=== PATIENT | male | born 1950 | race Caucasian/White ===

== ENCOUNTER 2023-02-06 00:40 | Day surgery (SDC) | payer MEDICARE, SELFPAY ==
--- NOTE | 2023-02-03 10:00 | PC.NURSE ---
Report to the Outpatient Waiting Room, entrance under the green pavilion located off [facility], at time __0700 on date _02/06/23 . Planned Procedure Time: _0900 . Time changes happen often and if your time is changed the preop area will call you the afternoon before. - You and your visitor will be asked to self-screen and do not enter if you have any COVID symptoms. - A mask is optional within the hospital at this time. Patients may have clear liquids (water, carbonated beverages, clear teas, apple juice) until 3 hours prior to surgery with a maximum of 20 ounces. - No food from midnight until time of surgery - Infants may have breast milk until 4 hours before surgery, infant formula 6 hours prior to surgery. - Children will be allowed to drink immediately following surgery. If applicable, please bring a bottle or sippy cup to assist with drinking. Juice, water, soda, and popsicles are readily available. For infants on formula, please bring formula the day of surgery. Pacifiers are allowed. Take the following medications with a SIP of water the morning of surgery: _AMLODIPINE,DOXYCYCLINE DO NOT STOP ANY OF YOUR OTHER PRESCRIPTION MEDICATIONS PRIOR TO SURGERY ?EXCEPT THE FOLLOWING Medications to discontinue per physician ___ALL VITAMINS AND SUPPLEMENTS 3 DAYS PRE OP.LAST DOSE 02/03/23. MAY REMAIN ON ELIQUIS PER DR NOLEN.BUT DO NOT TAKE MORNING OF SURGERY Please no make-up, nail israeli, hairspray, perfume, deodorant, or body powder the day of surgery. No jewelry (including any body piercings) or valuables the day of surgery, leave them at home. Please take a shower or bath the night before, or the morning of, surgery with an antibacterial soap. Wear comfortable, loose fitting clothing. Children are encouraged to wear pajamas. - Jewelry must be removed prior to entering the operating room. Rings and piercings that are not removed may be cut off. - The hospital will not accept responsibility for valuables. - Please leave all valuables, including medications, at home the day of surgery. If you are going home after surgery, a licensed reefer truck driver must drive you home. - NO public transportation without another adult if you receive anesthesia. - We recommend that an adult stay with you for 24 hours following discharge. - We also recommend that you do not drive, make important decision, drink alcoholic beverages, or take any drugs that were not prescribed by your health care provider for at least 24 hours after your discharge time. For Pediatric surgeries, we recommend two adults accompany the child home. Follow any additional instructions given to you from your surgeon. If you or anyone in your household have experienced Covid symptoms in the past week, please notify your surgeon or the nurse liaison at the phone number below for possible testing. Telephone instructions given to __PT'S SISTER TYRONE and asked if any additional questions and then verbalized understanding. Patient advised to call surgeon office or pre surgery nurse liaison [phone] if any additional questions.
[2023-02-03 10:12] VITALS: BMI 30.8
[2023-02-06] VITALS (8 sets, daily range): BP systolic 112–130; BP diastolic 70–79; PULSE 53–78; RESP 15–20; TEMP 36.1–36.7; O2SAT 90–97; BMI 31.1
--- NOTE | 2023-02-06 07:16 | WPDHPUPDATE1 ---
History and Physical Update Update Date/Time: 02/06/23 07:16 History and Physical has been reviewed, including an updated exam of the patient. There are NO changes in the patient's condition. Risks, benefits, and alternatives have been discussed and questions answered. Patient agrees to proceed with procedure.
[2023-02-06] MEDS: LACTATED RINGERS 1,000 ML 30 ML IV CONT ×2 (07:50→11:18)
--- NOTE | 2023-02-06 08:12 | P.PNAN_ITS ---
Anes - Initial Pre Proc Eval Procedure: Operation Date: 02/06/23 09:00 Proposed Procedures p Excision of Basal Cell Carcinoma Right Nasal Lobule, with Frozen Section, Full Thickness Skin Graft or Local Tissue Transfer - Kalin Suarez MD Date/Time: 02/06/23 08:12 Surgeon: Kalin Suarez MD Pre Op Diagnosis: basal cell carcinoma right nasal lobule Patient Data Age: 72 Gender: M Height: 1.88 m Weight: 109.9 kg Last Vital Signs Temp 36.7 C 02/06/23 07:00 Pulse 56 L 02/06/23 07:00 Resp 18 02/06/23 07:00 BP 130/76 02/06/23 07:00 Pulse Ox 96 02/06/23 07:00 O2 Del Method Room Air 02/06/23 07:00 Allergies Allergy/AdvReac Type Severity Reaction Status Date / Time prochlorperazine Allergy Mild Rash Verified 02/06/23 07:39 Home Medications Medication Instructions Recorded Confirmed Type amlodipine 5 mg tablet 5 mg PO DAILY 02/03/23 02/06/23 History apixaban 5 mg tablet (Eliquis) 5 mg PO BID 02/03/23 02/06/23 History atorvastatin 40 mg tablet 40 mg PO HS 02/03/23 02/03/23 History calcium carbonate 600 mg calcium 600 mg PO BID 02/03/23 02/06/23 History (1,500 mg) tablet cholecalciferol (vitamin D3) 50 50 mcg PO DAILY 02/03/23 02/06/23 History mcg (2,000 unit) tablet doxycycline hyclate 100 mg capsule 100 mg PO BID 02/03/23 02/06/23 History pantoprazole 40 mg tablet,delayed 40 mg PO DAILY 02/03/23 02/03/23 History release vit C 250 mg-vit E 90 mg-zinc 40 1 tablet PO BID 02/03/23 02/06/23 History mg-copper 1 [id number] capsule (PreserVision AREDS-2) Patient hx anesthesia problems: none Family hx anesthesia problems: none Results Review: All pre-operative results and documents have been reviewed as part of the pre- operative evaluation. [facility] Past Medical History Medical History (Updated 02/06/23 @ 08:13 by Brandon Emery MD) Pacemaker Social History Social History Smoking packs per day: 1 Smoking cigarettes per day: 20.0 Years smoked: 30 Smoking pack-years: 30.00 Smoking status: Former smoker Tobacco type: cigarettes Smoking end date: 06/16/11 Living arrangements: [facility] [place] care concerns: No Anes - Eval Final PreProcedure Day of Procedure 02/06/23 08:12 Patient weight: obese Heart: regular rate and rhythm Lungs: clear to auscultation Airway: Mallampati scale class II and special considerations poor dentition Neurological: alert and oriented Last oral intake: >/= 8 hours ASA classification: III Emergent: no Anesthetic plan: proceed Anesthesia type and monitoring: general GIVS Results Review: All pre-operative results and documents have been reviewed as part of the pre- operative evaluation. Informed Consent: The patient's anesthetic plan and its attendant risks and benefits were discussed with the patient/family/POA. Questions were solicited and answers provided to the satisfaction of the patient/family/POA.
[2023-02-06] MEDS: ceFAZolin SODIUM 1 GM VIAL 2 GM IV PUSH (09:29)
[2023-02-06] MEDS: LIDO 1%/EPINEPHRINE 1:100,000 20 ML VIAL 50 ML INFILTRATE (09:36)
--- NOTE | 2023-02-06 09:42 | SUR.OPER ---
Frozen section given to GEORGINA Seo. Received in lab by Tracey at [id number]
[2023-02-06] MEDS: BALANCED SALT SOLN OPHTH IRRIG 30 ML BTL 15 ML EACH EYE (09:59)
--- NOTE | 2023-02-06 11:51 | W.PM.PROC2 ---
Procedure Note - Detailed Date of Procedure 02/06/23 Pre-op Diagnosis basal cell carcinoma right nasal lobule Post-op Diagnosis Same Procedure Performed Excision of basal cell carcinoma of left nasal ala with frozen section and composite right ear cartilage and skin graft 2.5 sq cm Surgeon Kalin Suarez MD Regulatory Compliance Manager Bryant Garcia [facility] [place] Description of Procedure The lesion on the nose was marked on the patient in the holding area with his consent. We also discussed with him and his sister the likelihood of repairing the site with a composite graft including ear cartilage from the right ear. We had discussed several options in the office but I felt the cartilage graft would be important in his case as we spoke today. He was then taken to the operating room and placed supine on the operating table. He was given IV sedation. The face and right side of his head were prepped and draped in usual fashion. A time-out was held and confirmed. The site on the nose was carefully examined under operating room lights and 5 diopter loupe magnification. The cancer under this observation appeared a little larger than I initially thought. The site was marked and locally infiltrated with 1% lidocaine with epinephrine. The full-thickness skin incision was made and the specimen was taken off at the muscle fascial layer. A suture was placed at the most superior aspect for 12 o'clock and sent for frozen section. The pathologist reports that all margins were free on this basal cell carcinoma. The wound edge lay approximately 4-5 mm from the ala rim margin and this area had no support. The right ear was examined and measured for harvesting of a composite graft along the posterior thelma bowl. This area was also infiltrated with 1% lidocaine with epinephrine. The incision was from the posterior aspect and included the skin and cartilage which was from the anterior lamella. That wound was eventually closed with a little undermining and a running 4-0 nylon suture. The recipient area was widely undermined up over the dorsum in onto the lobule and laterally as well to create a pocket for the graft. The cartilage was trimmed appropriately. It was also scored on the convex aspect of both ends to allow a flatter shape to the graft. It was inset with its attached skin. No sutures were specifically placed in the graft as it seemed to fit well. The skin island was sutured around the periphery of the recipient site with interrupted 5 0 nylon. Efforts were made to diminish any compromise to the nasal airway space. Toward that end we applied a 0.5 mm sheet of plastic tailored to the site approximately 1 x 1 and 1/2 cm. This is sutured to the ala with 4-0 nylon tied over the skin. This seemed to help preserve the airway and I expect to removed it in a week or 2. Patient was given 2 g of Ancef at the start of the case. He has doxycycline on a regular regimen at home. He was discharged with instructions wound care and follow-up and a prescription for hydrocodone number 6. Implants 0.5 mm by 1 x 1-1/2 cm plastic stent in the right vestibule Estimated Blood Loss 5 Drains No Packing No Pathology Yes Complications No immediate complications Condition Stable Disposition PACU
== END 2023-02-06 12:58 | disposition home or self-care (01) ==
PROVIDERS: PCP Internal Medicine; Visit Provider Plastic Surgery
PROC: (CPT 11642; principal; 2023-02-06 09:00)
DX: C44.311 Basal cell carcinoma of skin of nose (principal); Z95.0 Presence of cardiac pacemaker; Z79.01 Long term (current) use of anticoagulants; Z87.891 Personal history of nicotine dependence; E66.9 Obesity, unspecified; Z68.31 Body mass index [BMI] 31.0-31.9, adult
CPT/HCPCS: 11642; 15760; 88305; 88331; A9270; J0330; J0690; J1100; J2405; J2704; J3010; J7120